=== PATIENT | female | born 1955 | race African-American/Black ===

== ENCOUNTER → 2022-09-12 | Day surgery (SDC) | payer OTHER ==
--- NOTE | 2022-09-12 11:12 | RAD REPORT ---
EXAM DESCRIPTION: US - Biopsy Lymph Node - 09/12/2022 9:40 am CLINICAL HISTORY: Left axillary mass TECHNIQUE: Risks, benefits alternatives to the procedure explained to patient and informed consent o btained Skin and subcutaneous tissues anesthetized with lidocaine. Under sonographic guidance 17 gauge needle placed into the left axillary mass. Through this four 18 c entimeter needle passes were obtained. 2 centimeter core specimens were taken. Materials given to pat hology Patient experienced immediate complication IMPRESSION: Core biopsies of a left axillary mass
== END ==
LOC: DS 08:54
PROVIDERS: ATTEND Nurse Practitioner Family
DX: R92.8 Other abnormal and inconclusive findings on diagnostic imaging of breast (principal)
CPT/HCPCS: 38505; 76942; 88305